=== PATIENT | male | born 2000 | race Caucasian/White ===

== ENCOUNTER 2020-06-20 11:35 | Outpatient (REF) | payer OTHER, SELFPAY | END 2020-06-20 11:36 | disposition home or self-care (01) | LOC: HO.WFDLDS 11:35 | PROVIDERS: Visit Provider Internal Medicine | DX: Z20.828 Contact with and (suspected) exposure to other viral communicable diseases (principal) | CPT/HCPCS: U0003 ==

== ENCOUNTER 2021-07-22 13:46 | Outpatient (REF) | payer OTHER, SELFPAY | END 2021-07-22 13:47 | disposition home or self-care (01) | LOC: HO.LNP 13:46 | PROVIDERS: Visit Provider Hospitalist | DX: Z20.822 Contact with and (suspected) exposure to COVID-19 (principal); J45.20 Mild intermittent asthma, uncomplicated | CPT/HCPCS: U0003; U0005 ==

== ENCOUNTER 2022-03-15 18:11 | Emergency (ER) | payer OTHER, SELFPAY ==
[2022-03-15 18:14] VITALS: BP 130/70; PULSE 98; RESP 18; TEMP 37.2; O2SAT 98; BMI 38.7
--- NOTE | 2022-03-15 21:14 | ED_ITS ---
HPI - Allergic Reaction General Chief complaint: Allergic Reaction Stated complaint: allergic reaction/diff breathing Time Seen by Provider: 03/15/22 21:14 Source: patient Mode of arrival: ambulatory Limitations: no limitations History of Present Illness HPI narrative: 22 yo male presents to the ER for evaluation of an allergic reaction. 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 He also reported at the time he had a red, raised rash all over his left leg and it spread up onto his abdomen. He tried using his inhaler with no improvement. He then took benadryl and symptoms slowly started to resolve. He states he had this type of reaction once before but did not know the cause. He has no known aller gies. Symptoms are now resolved. He reports his chest wall feels sore from being SOB for 1.5 hours earlier today. MD complaint: allergic reaction and hives Onset (ago): hour(s) (7.5) Exposure: unknown Symptoms: rash, itching and difficulty breathing Severity: severe Treatment prior to arrival: benadryl Related Data Previous Rx's Medication Instructions Recorded ProAir HFA 90 mcg/actuation 2 puff inhalation Q4-6H PRN for 12/22/21 aerosol inhaler (albuterol sulfate) wheezing 1 month #8.5 grams epinephrine 0.3 mg/0.3 mL 0.3 mg (0.3 mL) IM ONCE PRN 03/15/22 injection, auto-injector (EpiPen) anaphylaxis #1 ea Allergies Allergy/AdvReac Type Severity Reaction Status Date / Time No Known Allergies Allergy Verified 11/13/21 09:03 Review of Systems Review of Systems: Constitutional: No Fever, No Chills ENT/Mouth: No sore throat, +Rhinorrhea, + Swallowing Difficulty Eyes: No Eye Pain, No Swelling, No Redness Cardiovascular: No Chest Pain, + SOB, No Orthopnea, No Edema Respiratory: No Cough, No Sputum, No Wheezing, No dyspnea Gastrointestinal: No Nausea, No Vomiting, No Diarrhea, No abdominal Pain Musculoskeletal: No joint pain, No Myalgias Skin: No Skin Lesions, + rash Neuro: No Weakness, No Numbness, No Dizziness, No Headache Psych: + Anxiety/Panic, No Depression Heme/Lymph: No Bruising, No Lymphadenopathy PMFSH Social History Social History Alcohol intake: never Patient Tobacco Use Status: Never used Tobacco Advance Directives: No Advance Directives Information Provided: No Physical Exam ED Vital Signs: Vital Signs - 24 hr 03/15/22 18:14 Temperature 99.0 F Pulse Rate 98 Respiratory Rate 18 Blood Pressure 130/70 Pulse Oximetry 98 Oxygen Delivery Method Room Air BMI result Body Mass Index 38.7 Appearance: Alert. Oriented X3. No acute distress. Eyes: Pupils equal, round and reactive to light. ENT: Pharynx normal. Uvula midline. No airway swelling. Normal voice. Normal lips. Neck: Normal inspection. Neck supple. CVS: Normal heart rate and rhythm. Pulses normal. Respiratory: No respiratory distress. Breath sounds normal. Abdomen: Soft and nontender. +BS x4 Skin: Skin warm and dry. Normal skin color. Normal skin turgor. No rashes. Extremities: No lower extremity edema. No rash Neuro: Oriented X 3. No motor deficit. No sensory deficit. Course Course Course Narrative: 22 yo male presents to the ER 7 hours after he had a possible allergic reaction with SOB, throat closing sensation and rash that resolved with benadryl. no known allergy history. his exam is normal here and his symptoms are resolved. he would like an EpiPen in the event this occurs again before he is able to see his PCP. He would like to get allergy testing. He is stable for d/c home and will plan to carry benadryl with him. Critical Care Time Critical Care Time Critical Care Time: No Discharge Plan Discharge Clinical Impression: Allergic reaction Patient Disposition: Home, Self-Care Instructions: General Allergic Reaction (ED), Allergy Testing (ED) Additional Instructions: If you have recurrent symptoms like you did today, use your EpiPen and call 911. Follow up with your doctor for arrangements for allergy testing. If you develop new or worsening symptoms call 911 or come back to the ER for further evaluation. Prescriptions: New epinephrine [EpiPen] 0.3 mg/0.3 mL auto-injector 0.3 mg IM ONCE PRN (Reason: anaphylaxis) Qty: 1 0RF No Action albuterol sulfate [ProAir HFA] 90 mcg/actuation HFA aerosol inhaler 2 puff inhalation Q4-6H PRN (Reason: for wheezing) 30 Days Qty: 8.5 6RF Interventions: ED Discharge Assessment Last Done: 03/15/22 21:42
== END 2022-03-15 21:47 | disposition home or self-care (01) ==
PROVIDERS: Emergency Provider Internal Medicine
DX: L50.0 Allergic urticaria (principal); R06.02 Shortness of breath; Z79.899 Other long term (current) drug therapy
CPT/HCPCS: 99282; 99283

== ENCOUNTER 2023-03-25 14:41 | Outpatient (AMB) | payer OTHER, SELFPAY ==
--- NOTE | 2023-03-25 14:44 | MHC.OFFWIV ---
Intake Vital Signs 03/25/23 14:46 Height 5 ft 10 in BP 138/72 Blood Pressure Location Lt brachial Position Sitting Pulse 96 Pulse Source Pulse Oximeter Temp 97.6 F Temp Source Temporal Artery Scan Pulse Oximetry (%) 100 Oxygen Delivery Method Room Air Intake Visit Reasons: EST/stomach issues/pain Intake Note: Pt is here c/o abdominal pain this morning. Pt states he wasn't able to keep anything down this morning but has been feeling better since taking otc medications. Pt is requesting a work note for today. Patient Tobacco Use Status: Never used Tobacco Allergies No Known Allergies Allergy (Verified 03/27/23 09:29) Medication List - Last Reconciled 03/27/23 by Óscar Sevilla MD albuterol sulfate 90 mcg/actuation (Ventolin HFA) 2 puffs inhalation Q4-6H PRN 1 month epinephrine (EpiPen) 0.3 mg (0.3 mL) IM ONCE PRN sulfamethoxazole-trimethoprim 800-160 mg (Bactrim DS) 1 tab PO BID 7 days Do you need a note to return to daycare/school/sports/work: No HPI EST/stomach issues/pain HPI Details 23-year-old male presents to the office for a sick visit. For the past couple days he has been feeling nauseous and had loose stool. As a result he could not go to work. His employer is asking him for a note. His symptoms are slowly improving without any medications [facility] Social History Alcohol intake: never Patient Tobacco Use Status: Never used Tobacco Physical Exam Vital Signs: Last Vital Signs Temp 97.6 F 03/25/23 14:46 Pulse 96 03/25/23 14:46 BP 138/72 03/25/23 14:46 Pulse Ox 100 03/25/23 14:46 Oxygen Delivery Method Room Air 03/25/23 14:46 Const General: cooperative and healthy appearing Nutritional Appearance: well nourished Orientation/consciousness: patient oriented x3 Limitations: no limitations HEENT Head: Yes normal to inspection Eyes General: appearance normal, both eyes and all related structures Neck Neck: Yes normal visual inspection Chest Chest palpation & inspection: normal palpation of entire chest wall Resp Effort & Inspection: normal respiratory effort Neuro General: patient oriented x3 Assessment & Plan Assessment & Plan (1) Viral gastroenteritis: Code(s): A08.4 - Viral intestinal infection, unspecified Plan: Self-limiting illness. Increase fluid intake. Note for work given Coding Level of Care Code Est Pt Level 3 (12291) Diagnoses Viral gastroenteritis A08.4
[2023-03-25 14:46] VITALS: BP 138/72; PULSE 96; TEMP 36.4; O2SAT 100
== END 2023-03-25 15:50 | disposition home or self-care (01) ==
PROVIDERS: PCP Hospitalist; Visit Provider Internal Medicine
DX: A08.4 Viral intestinal infection, unspecified (principal)
CPT/HCPCS: 99213

== ENCOUNTER 2023-11-18 11:38 | Outpatient (AMB) | payer OTHER, SELFPAY ==
[2023-11-18 11:49] VITALS: BP 138/80; PULSE 107; O2SAT 98; BMI 48.5
--- NOTE | 2023-11-18 11:49 | MHC.PC.OV ---
Vital Signs 11/18/23 11:49 Height 5 ft 10 in Weight 338 lb 2 oz BMI 48.5 BP 138/80 Blood Pressure Location Lt brachial Pulse 107 H Pulse Source Pulse Oximeter Pulse Oximetry (%) 98 Oxygen Delivery Method Room Air Intake Visit Reasons: medication follow up Intake Note: Patient is here for albuterol follow up. Allergies No Known Allergies Allergy (Verified 11/18/23 11:52) Tobacco use date assessed: 11/18/23 Dental Screening Dental Screen Date: 11/18/23 Did you have a dental visit in the last 12 months?: Yes Did you have a dental problem in the last 6 months where you did not have access to dental care?: No Was dental information given to patient?: Patient has dentist HPI medication follow up HPI Details 23 y/o male presents today to f/u meds. He is on albuterol. SANTI-7 15 today. [facility] Social History Housing: House Alcohol intake: never Patient Tobacco Use Status: Never used Tobacco e-Cigarette/Vaping Use: Never Used service: No Current occupational status: employed Current occupation: loaders at [employer] Cognitive needs: No Hearing needs: No Vision needs: No Questionnaire PHQ-9 Over the last 2 weeks, how often have you been bothered by any of the following problems? 1. Little interest or pleasure in doing things: not at all 2. Feeling down, depressed, or hopeless: not at all 3. Trouble falling or staying asleep, or sleeping too much: not at all 4. Feeling tired or having little energy: not at all 5. Poor appetite or overeating: not at all 6. Feeling bad about yourself - or that you are a failure or have let yourself or your family down: not at all 7. Trouble concentrating on things, such as reading the newspaper or watching television: not at all 8. Moving or speaking so slowly that other people could have noticed. Or the opposite - being so fidgety or restless that you have been moving around a lot more than usual: not at all 9. Thoughts that you would be better off or of hurting yourself in some way: not at all Total score: 0 Depression Screening Interpretation: Negative Depression Screening Done: Yes 69904 - PHQ-9 Billing: Yes Source: Developed by Drs. John Chavez, Cristina Tobin, Ronnie Florez and colleagues, with an educational wendy from [employer]. Thrive Questionnaire Date Thrive assessed: 11/18/23 I am a: Patient What is your living situation today?: I have a steady place to live Within the past 12 months, did the food you bought not last and you didn't have the money to get more?: Never true Within the past 12 months, did you worry whether your food would run out before you got money to buy more?: Never true Do you have trouble paying for medicines?: No Do you have trouble getting transportation to medical appointments?: No Do you have trouble paying your heating and electricity bill?: No Do you have trouble taking care of your child, family member or friend?: No Do you have trouble with day-to-day activities such as bathing, preparing meals, shopping, managing finances, etc.?: No Are you currently unemployed and looking for a job?: No Are you interested in more education?: No THRIVE Score: 0 AUDIT C Alcohol Use Questionnaire (AUDIT-C) 1. How often do you have a drink containing alcohol?: Monthly or less 2. How many drinks containing alcohol do you have on a typical day when you are drinking?: 1 or 2 3. How often do you have six or more drinks on one occasion?: Never Total Score: 1 SANTI-7 AMB Questionnaire SANTI-7 Date SANTI - 7 assessed: 11/18/23 Feeling nervous, anxious, or on edge: 2 = More than half the days Not being able to stop or control worryin = Several days Worrying too much about different things: 3 = Nearly every day Trouble relaxin = Nearly every day Being so restless that it is hard to sit still: 3 = Nearly every day Becoming easily annoyed or irritable: 3 = Nearly every day Feeling afraid as if something awful might happen: 0 = Not at all Total SANTI-7 score (0-4 normal; 5-9 mild; 10-14 moderate; 15-21 severe): 15 Source: Developed by Drs. John Chavez, Ronnie Valdez and colleagues, with an educational wendy from [employer]. SANTI-7 Assessment Billing SANTI-7 Assessment Tool: SANTI-7 Assessment 74053 ACT Questionnaire In the past 4 weeks, how much of the time did your asthma keep you from getting as much done at work, school or at home?: Most of the time During the past 4 weeks, how often have you had shortness of breath?: More than once a day During the past 4 weeks, how often did your asthma symptoms wake you up at night or earlier than usual in the morning?: 2-3 nights a week During the past 4 weeks, how often have you had to use your rescue inhaler or nebulizer medication?: More than 3 times per day How would you rate your asthma control during the past 4 weeks?: Somewhat controlled ACT Interpretation: Positive Score: 9 Review of Systems Const Denies chills, Denies fatigue, Denies fever(s), Denies headache(s) and Denies weakness ENT Denies dizziness and Denies headache(s) Card Denies dyspnea Resp Denies cough, Denies dyspnea, Denies wheezing and Denies other (shortness of breath) Musc Denies numbness and Denies tingling Neuro Denies dizziness, Denies headache(s), Denies numbness, Denies tingling and Denies weakness Psych Reports anxiety Endo Denies fatigue Aller/Immun Denies wheezing Physical exam (Primary Care) Vital Signs: Last Vital Signs Pulse 107 H 11/18/23 11:49 BP 138/80 11/18/23 11:49 Pulse Ox 98 11/18/23 11:49 Oxygen Delivery Method Room Air 11/18/23 11:49 BMI result Body Mass Index 48.5 Tobacco/Smoking Status: Tobacco use Status Tobacco use date assessed 11/18/23 11/18/23 12:02 Patient Tobacco Use Status Never used Tobacco 11/18/23 12:02 e-Cigarette/Vaping Use Never Used 11/18/23 12:02 PHQ-9: PHQ-9 Score PHQ-9: Total score 0 11/18/23 12:14 Depression Screening Interpretation: Negative Thrive Assessment: Date of Thrive Assessment Date Thrive assessed 11/18/23 11/18/23 12:02 Const General: well developed; No acute distress Nutritional Appearance: well nourished Orientation/consciousness: patient oriented x3 HENMT Head: Yes normocephalic and Yes atraumatic Eyes General: appearance normal, both eyes and all related structures Pupils: Equal, round and reactive pupils present EOM: EOMs intact bilaterally Resp Effort & Inspection: normal respiratory effort Neuro General: patient oriented x3 and gait normal Cranial nerves: Yes Equal, round and reactive pupils present Psych Affect: normal affect Assessment and Plan Assessment & Plan (1) Anxiety: Code(s): F41.9 - Anxiety disorder, unspecified Plan: Significant?anxiety Refer?to?nurse?navigator?to?connect?with?a?therapist Trial?citalopram (2) Moderate persistent asthma: Code(s): J45.40 - Moderate persistent asthma, uncomplicated Plan: Refilled?albuterol?inhaler Can?trial?controller?medication Orders: Orders Comprehensive [place]. Panel Fast Today Z00.00 - Encounter for general adult medical examination without abnormal findings Complete Blood Count Auto Diff Today Z00.00 - Encounter for general adult medical examination without abnormal findings Microalbumin, Random (w Creat) Today I10 - Essential (primary) hypertension TSH reflex Free T4 Today Z00.00 - Encounter for general adult medical examination without abnormal findings UA and rflx microscopic Today Z00.00 - Encounter for general adult medical examination without abnormal findings Referrals Nurse Navigator Referral F41.9 - Anxiety disorder, unspecified Medications: New citalopram 20 mg PO DAILY 30 days 30 tabs 3RF budesonide-formoterol 80-4.5 mcg/actuation (Symbicort) 1 puff inhalation Q12H 30 days 10.2 grams 4RF Changed From albuterol sulfate 90 mcg/actuation (Ventolin HFA) 2 puffs inhalation Q4-6H 1 month PRN 8.5 grams 0RF shortness of breath or wheezing To albuterol sulfate 90 mcg/actuation (Ventolin HFA) 2 puffs inhalation Q4-6H 30 days PRN 8.5 grams 4RF shortness of breath or wheezing Coding Level of Care Code Est Pt Level 3 (17663) Diagnoses Anxiety F41.9 Moderate persistent asthma J45.40 Additional Codes SANTI-7 Assessment Billing - SANTI-7 Assessment Tool: SANTI-7 Assessment [id number] ([id number])
== END 2023-11-18 12:29 | disposition home or self-care (01) ==
PROVIDERS: PCP Hospitalist; Visit Provider Family Medicine
DX: F41.9 Anxiety disorder, unspecified (principal); J45.40 Moderate persistent asthma, uncomplicated
CPT/HCPCS: 99213